=== PATIENT | male | born 1955 | race Caucasian/White ===

== ENCOUNTER 2018-10-10 11:19 | Day surgery (SDC) | payer OTHER ==
[2018-10-09 16:08] VITALS: BMI 27.6
[2018-10-10] MEDS ORDERED: EPINEPHrine 1 MG/ML AMP ONE (13:50)
[2018-10-10 14:12] LABS: Hemoglobin 14.9 g/dL (14.0-18.0)
[2018-10-10] MEDS ORDERED: Fentanyl 100 MCG/2 ML VIAL ONE ×2 (14:14→15:06)
[2018-10-10] MEDS ORDERED: PROPOFOL 20 ML ONE ×2 (14:24→14:29)
[2018-10-10 14:40] LABS: Anion Gap 10 mmol/L (10-20); BUN (Urea Nitrogen) 29 mg/dL (8.4-25.7); Calc. Creatinine Clearance 85 mL/min (70-130); Calcium 10.2 mg/dL (7.8-10.44); Carbon Dioxide 30 mmol/L (23-31); Chloride 101 mmol/L (98-107); Estimated GFR-MDRD 60; Glucose 91 mg/dL (80-115); Potassium 4.8 mmol/L (3.5-5.1); Sodium 136 mmol/L (136-145)
[2018-10-10] MEDS ORDERED: hydrALAZINE 20 MG/ML VIAL ONE (15:17)
[2018-10-10] MEDS ORDERED: Succinylcholine Chloride 20 MG/ML 10 ml SYRINGE FS ONE (15:44)
[2018-10-10] MEDS ORDERED: Lidocaine 1% PF 5 ML VIAL ONE (15:44)
[2018-10-10] MEDS ORDERED: PROPOFOL 200 MG/20 ML VIAL ONE (15:44)
[2018-10-10] MEDS ORDERED: Hydrocodone-Acetamin 15 ML UDCUP ONE (16:03)
--- NOTE | 2018-10-10 17:50 | EKG ---
Test Reason : PREOP Blood Pressure : / mmHG Vent. Rate : 067 BPM Atrial Rate : 067 BPM P-R Int : 220 ms QRS Dur : 110 ms QT Int : 378 ms P-R-T Axes : 021 065 027 degrees QTc Int : 399 ms Sinus rhythm with 1st degree A-V block ST elevation, consider early repolarization Borderline ECG No previous ECGs available Confirmed by DR. Isidro JIMENEZ ([id number]) on 10/10/2018 5:50:06 PM Referred By: DIMAS Confirmed By:DR. Isidro JIMENEZ
--- NOTE | 2018-10-11 11:21 | OP ---
DATE OF PROCEDURE: 10/10/2018 PREOPERATIVE DIAGNOSES: 1. Right true vocal cord lesion. 2. Dysphonia. POSTOPERATIVE DIAGNOSES: 1. Right true vocal cord lesion. 2. Dysphonia. PROCEDURE: Microsuspension direct laryngoscopy with biopsy. EBL: Less than 1 mL. COMPLICATIONS: None. ANESTHESIA: GETA with jet ventilation. DESCRIPTION OF PROCEDURE: The patient was taken to the operating room, placed supine on the table. Mask anesthesia was obtained by the anesthesia staff. Following this, head of the bed was turned 90 degrees. A shoulder roll was placed and dental guards were placed in the upper teeth. Following this, the Dedo laryngoscope was then introduced into the oral cavity. The oral cavity, oropharynx, and pharyngeal structures were examined and were noted to be within normal limits. Vallecula, epiglottis, piriform sinus, and postcricoid mucosa were all noted to be within normal limits. No mucosal lesions. Following this, the patient was placed in suspension exposing the laryngeal inlet. Following this, 400 mm lens was used on the operating microscope to visualize vocal cords. On the mid to posterior portion of the vocal cords, there was an exophytic and very scarred linear granuloma-like lesion arising from the midportion of the mid to posterior right true vocal cord. Using the microlaryngeal scissors and forceps, this lesion was excised under high-power microscopy appeared to be ulcerative in nature. This was sent for pathological analysis, epinephrine pledgets were allowed to soak on this area for approximately 3 minutes. The patient tolerated the procedure well. Job ID: [id number]
== END 2018-10-10 17:25 | disposition home or self-care (01) ==
LOC: SDC 11:19
PROVIDERS: ATTEND Otolaryngology Plastic Surgery within the Head & Neck
PROC: 0CBT8ZX Excision of Right Vocal Cord, Via Natural or Artificial Opening Endoscopic, Diagnostic (ICD-10-PCS; principal; 2018-10-10)
DX: J38.3 Other diseases of vocal cords (principal); I10 Essential (primary) hypertension; E03.9 Hypothyroidism, unspecified; E29.1 Testicular hypofunction; F31.9 Bipolar disorder, unspecified; K21.9 Gastro-esophageal reflux disease without esophagitis; N40.0 Benign prostatic hyperplasia without lower urinary tract symptoms; Z91.040 Latex allergy status; Z91.048 Other nonmedicinal substance allergy status; Z88.8 Allergy status to other drugs, medicaments and biological substances; Z79.899 Other long term (current) drug therapy
CPT/HCPCS: 36415; 80048; 85014; 85018; 88305; 93005; 93010; J0171; J0360; J2001; J2704; J3010

== ENCOUNTER 2018-11-23 17:17 | Emergency (ER) | payer OTHER ==
[2018-11-23] MEDS ORDERED: Adacel (T-DAP) 0.5 ML SYRINGE ONE (17:56)
== END 2018-11-23 18:20 | disposition home or self-care (01) ==
LOC: SCSER 17:17
DX: S61.210A Laceration without foreign body of right index finger without damage to nail, initial encounter (principal); I10 Essential (primary) hypertension; F31.9 Bipolar disorder, unspecified; Z79.899 Other long term (current) drug therapy; W26.8XXA Contact with other sharp object(s), not elsewhere classified, initial encounter
CPT/HCPCS: 90471; 90715